=== PATIENT | female | born 1995 | race Two or more races ===

== ENCOUNTER 2016-09-27 05:42 | Emergency (ER) | payer MEDICAID, OTHER ==
[2016-09-27] MEDS ORDERED: cefTRIAXone 1,000 MG in Lidocaine 1% 4 ML IM ONE (06:04)
--- NOTE | 2016-09-27 06:04 | EDM.PDOC ---
ED HPI GENERAL MEDICAL PROBLEM - General Chief Complaint: ENT Problem Stated Complaint: EAR/JAW PAIN Time Seen by Provider: 09/27/16 06:02 Source of Information: Reports: Patient - History of Present Illness INITIAL COMMENTS - FREE TEXT/NARRATIVE: HISTORY AND PHYSICAL: History of present illness: [] Patient presents with left ear pain over the last 24 hours, she also has some supplements note some anterior chain no mastoid tenderness tympanic membrane on right is mildly injected left reddened obscured landmarks with effusion in no mastoid tenderness No fever nausea vomiting chills sweats Review of systems: As per history of present illness and below otherwise all systems reviewed and negative. Past medical history: As per history of present illness and as reviewed below otherwise noncontributory. Surgical history: As per history of present illness and as reviewed below otherwise noncontributory. Social history: No reported history of drug or alcohol abuse. Family history: As per history of present illness and as reviewed below otherwise noncontributory. Physical exam: HEENT: Atraumatic, normocephalic, pupils reactive, negative for conjunctival pallor or scleral icterus, mucous membranes moist, throat clear, neck supple, nontender, trachea midline. Lungs: Clear to auscultation, breath sounds equal bilaterally, chest nontender. Heart: S1S2, regular, negative for clicks, rubs, or JVD. Abdomen: Soft, nondistended, nontender. Negative for masses or hepatosplenomegaly. Negative for costovertebral tenderness. Pelvis: Stable nontender. Genitourinary: Deferred. Rectal: Deferred. Extremities: Atraumatic, negative for cords or calf pain. Neurovascular unremarkable. Neuro: Awake, alert, oriented. Cranial nerves II through XII unremarkable. Cerebellum unremarkable. Motor and sensory unremarkable throughout. Exam nonfocal. Diagnostics: [] Therapeutics: [] 1 g Rocephin IM Amoxicillin 875 by mouth twice a day #20 no refill Impression: [] Left otitis media Definitive disposition and diagnosis as appropriate pending reevaluation and review of above. Left Ear Pain Score (Numeric/FACES): 8 - Related Data Allergies Allergy/AdvReac Type Severity Reaction Status Date / Time No Known Allergies Allergy Verified 09/27/16 05:48 Home Meds: Home Meds . 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: None Musculoskeletal History: Reports: None Psychiatric History: Reports: None Dermatologic History: Reports: None - Past Surgical History HEENT Surgical History: Reports: None Cardiovascular Surgical History: Reports: None Respiratory Surgical History: Reports: None Musculoskeletal Surgical History: Reports: None Dermatological Surgical History: Reports: None Social & Family History - Tobacco Use Smoking Status *Q: Current Every Day Smoker Years of Tobacco use: 5 Packs/Tins Daily: 0.2 Tobacco Use Comment: on and off ED ROS GENERAL - Review of Systems Review Of Systems: ROS reveals no pertinent complaints other than HPI. ED EXAM, GENERAL - Physical Exam Exam: See Below Course - Vital Signs Last Recorded V/S: Last Vital Signs Temp 36.6 C 09/27/16 05:48 Pulse 82 09/27/16 05:48 Resp 16 09/27/16 05:48 BP 130/79 09/27/16 05:48 Pulse Ox 99 09/27/16 05:48 - Orders/Labs/Meds Orders: Active Orders 24 hr Category Date Time Status cefTRIAXone [Rocephin] 1,000 mg Med 09/27/16 06:04 Ordered Lidocaine 1% [Xylocaine-MPF 1%] 4 ml IM ONETIME Departure - Departure Time of Disposition: 06:06 Disposition: Home, Self-Care 01 Condition: good Clinical Impression: Otitis media Forms: ED Department Discharge Additional Instructions: Medication as prescribed Return if symptoms persist or worsen Followup with primary care as needed The following information is given to patients seen in the emergency department who are being discharged to home. This information is to outline your options for follow-up care. We provide all patients seen in our emergency department with a follow-up referral. The need for follow-up, as well as the timing and circumstances, are variable depending upon the specifics of your emergency department visit. If you don't have a primary care physician on staff, we will provide you with a referral. We always advise you to contact your personal physician following an emergency department visit to inform them of the circumstance of the visit and for follow-up with them and/or the need for any referrals to a consulting specialist. The emergency department will also refer you to a specialist when appropriate. This referral assures that you have the opportunity for follow-up care with a specialist. All of these measure are taken in an effort to provide you with optimal care, which includes your follow-up. Under all circumstances we always encourage you to contact your private physician who remains a resource for coordinating your care. When calling for follow-up care, please make the office aware that this follow-up is from your recent emergency room visit. If for any reason you are refused follow-up, please contact the [facility] emergency department at and asked to speak to the emergency department charge nurse. - My Orders Last 24 Hours: My Active Orders 09/27/16 06:04 cefTRIAXone [Rocephin] 1,000 mg Lidocaine 1% [Xylocaine-MPF 1%] 4 ml IM ONETIME - Assessment/Plan Last 24 Hours: My Active Orders 09/27/16 06:04 cefTRIAXone [Rocephin] 1,000 mg Lidocaine 1% [Xylocaine-MPF 1%] 4 ml IM ONETIME
[2016-09-27 06:37] VITALS: BP 127/77
== END 2016-09-27 06:37 | disposition home or self-care (01) ==
LOC: MW.ED 05:42
DX: H66.92 Otitis media, unspecified, left ear (principal); F17.210 Nicotine dependence, cigarettes, uncomplicated
CPT/HCPCS: 96372; 99282; J0696; 99283

== ENCOUNTER 2016-09-28 11:26 | Emergency (ER) | payer MEDICAID, OTHER ==
[2016-09-28 12:00] VITALS: BP 146/87
[2016-09-28] MEDS ORDERED: Ketorolac 60 MG/2 ML SDV IM ONE (12:15)
--- NOTE | 2016-09-28 12:20 | EDM.PDOC ---
ED HPI ENT - General Chief Complaint: ENT Problem Stated Complaint: EARACHE Time Seen by Provider: 09/28/16 11:55 Source of Information: Reports: Patient History Limitations: Reports: No limitations - History of Present Illness INITIAL COMMENTS - FREE TEXT/NARRATIVE: Presents reporting left ear pain. The patient states that she was seen in this ER yesterday by another provider for the same complaint. She was given a injection and a prescription for antibiotics which she picked up and started. Now. She states that now the pain is radiating to her left jaw and that she cannot lay on her left side because the exterior pressure hurts to much. No fever, dental problems. She states that she did have a watery drainage. - Related Data Allergies/ADRs: Allergies Allergy/AdvReac Type Severity Reaction Status Date / Time No Known Allergies Allergy Verified 09/28/16 12:00 Home Meds: Home Meds . 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 Musculoskeletal History: Reports: None Psychiatric History: Reports: None Dermatologic History: Reports: None - Past Surgical History HEENT Surgical History: Reports: None Cardiovascular Surgical History: Reports: None Respiratory Surgical History: Reports: None Musculoskeletal Surgical History: Reports: None Dermatological Surgical History: Reports: None Social & Family History - Family History Family Medical History: Noncontributory - Tobacco Use Smoking Status *Q: Current Every Day Smoker Years of Tobacco use: 4 Packs/Tins Daily: 0.2 - Caffeine Use Caffeine Use: Reports: None - Recreational Drug Use Recreational Drug Use: No ED ROS ENT - Review of Systems Review Of Systems: ROS reveals no pertinent complaints other than HPI. ED EXAM, ENT - Physical Exam Exam: See Below Exam Limited By: No limitations General Appearance: alert, mild distress (Due to pain) Ears: normal TMs (Right), other (The left canal is tight. The TM is partially visualized and is without injection. There appears to be some dried blood up against the TM. Much tragal tenderness. No mastoid tenderness) Nose: normal inspection Mouth/Throat: Normal inspection, Normal oropharynx Head: atraumatic, normocephalic Neck: normal inspection, supple, non-tender. No: lymphadenopathy (L), lymphadenopathy (R) Respiratory/Chest: no respiratory distress, lungs clear Cardiovascular: normal peripheral pulses, regular rate, rhythm, no murmur Neurological: alert, oriented Psychiatric: normal affect, normal mood Skin: Warm, Dry, Intact, Normal color, No rash Lymphatic: no adenopathy Course - Vital Signs Last Recorded V/S: Last Vital Signs Temp 36.4 C 09/28/16 11:58 Pulse 100 09/28/16 11:58 Resp 18 09/28/16 11:58 BP 146/87 H 09/28/16 11:58 Pulse Ox 97 09/28/16 11:58 - Orders/Labs/Meds Orders: Active Orders 24 hr Category Date Time Status Ketorolac [Toradol] Med 09/28/16 12:15 Once 60 mg IM ONETIME ONE Departure - Departure Time of Disposition: 12:21 Disposition: Home, Self-Care 01 Condition: good Clinical Impression: Otitis externa Qualifiers: Otitis externa type: unspecified type Laterality: left Chronicity: acute Qualified Code(s): H60.502 - Unspecified acute noninfective otitis externa, left ear Referrals: PCP,None [Primary Care Provider] - [facility] [Outside] [facility] [Outside] Forms: ED Department Discharge Additional Instructions: 1. Ear drops 4 drops in left ear 4 times a day x 7 days. 2. ibuprofen 600 mg (3 tabs) 3 times a day or Aleve 2 tabs in the morning and 2 tabs at night as needed for pain 3. please followup in primary care if symptoms worsen or do not improve as expected. 4. continue and finish antibiotics prescribed yesterday. - My Orders Last 24 Hours: My Active Orders 09/28/16 12:15 Ketorolac [Toradol] 60 mg IM ONETIME ONE - Assessment/Plan Last 24 Hours: My Active Orders 09/28/16 12:15 Ketorolac [Toradol] 60 mg IM ONETIME ONE
== END 2016-09-28 12:50 | disposition home or self-care (01) ==
LOC: MW.ED 11:26
DX: H60.502 Unspecified acute noninfective otitis externa, left ear (principal); F17.210 Nicotine dependence, cigarettes, uncomplicated
CPT/HCPCS: 96372; 99282; J1885; 99283

== ENCOUNTER 2016-09-28 19:38 | Inpatient (IN) | payer MEDICAID, OTHER ==
[2016-09-28] MEDS: Ondansetron 4 MG/2 ML SDV IVPUSH PRN (20:24)
[2016-09-28] MEDS: Sodium Chloride 0.9% 1,000 ML IV SCH (20:24)
[2016-09-28] MEDS: HYDROmorphone 2 MG/ML Syringe IVPUSH PRN (20:24)
--- NOTE | 2016-09-28 20:27 | EDM.PDOC ---
ED HPI ENT - General Chief Complaint: ENT Problem Stated Complaint: LEFT EAR PAIN Time Seen by Provider: 09/28/16 20:24 Source of Information: Reports: Provider - History of Present Illness INITIAL COMMENTS - FREE TEXT/NARRATIVE: She had 2 prior ER visits for left ear pain. She was given Rocephin and prescribed amoxicillin. She now complains of severe left ear pain. She is uncertain if she had a fever. She has slight runny nose. She has not vomited. Her pain is severe she has been unable to sleep because of pain. She notes swelling in front of her left ear. 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 QA History: Reports: None Musculoskeletal History: Reports: None Neurological History: Reports: None Psychiatric History: Reports: None Endocrine/Metabolic History: Reports: None Hematologic History: Reports: None Immunologic History: Reports: None Oncologic (Cancer) History: Reports: None Dermatologic History: Reports: None - Infectious Disease History Infectious Disease History: Reports: None - Past Surgical History Head Surgeries/Procedures: Reports: None HEENT Surgical History: Reports: None Cardiovascular Surgical History: Reports: None Respiratory Surgical History: Reports: None Musculoskeletal Surgical History: Reports: None Dermatological Surgical History: Reports: None Social & Family History - Family History Family Medical History: Noncontributory - Tobacco Use Smoking Status *Q: Current Every Day Smoker Years of Tobacco use: 4 Packs/Tins Daily: 0.2 - Caffeine Use Caffeine Use: Reports: None - Recreational Drug Use Recreational Drug Use: No ED ROS ENT - Review of Systems Review Of Systems: ROS reveals no pertinent complaints other than HPI. ED EXAM, ENT - Physical Exam Exam: See Below Text/Narrative:: She is alert and tearful. She complains of severe left ear pain. She has a slight swelling in the left preauricular area. Is marked pain with any touching of the tragus or the tissues around the ear. Marked pain with movement of the ear canal. The left ear canal appears very swollen such that the tympanic membrane cannot be visualized. Right TM is normal. Lungs clear to auscultation. Heart regular rate and rhythm without murmur. Abdomen nontender. Normal mentation but she is very tearful. Course - Vital Signs Last Recorded V/S: Last Vital Signs Temp 97.8 F 09/28/16 22:17 Pulse 110 H 09/28/16 22:17 Resp 16 09/28/16 22:17 BP 129/80 09/28/16 22:17 Pulse Ox 99 09/28/16 22:17 - Orders/Labs/Meds Orders: Active Orders 24 hr Category Date Time Status Orbit Sella PF IAC wo Cont [CT] Stat Exams 09/28/16 20:17 Taken CULTURE BLOOD [BC] Stat Lab 09/28/16 20:26 Results CULTURE BLOOD [BC] Stat Lab 09/28/16 20:33 Received HYDROmorphone [Dilaudid] Med 09/28/16 20:15 Active 2 mg IVPUSH Q2H PRN Ondansetron [Zofran] Med 09/28/16 20:15 Active 4 mg IVPUSH Q4H PRN Piperacillin/Tazobactam [Piperacil-Tazobact] 3.375 gm Med 09/28/16 20:15 Active Sodium Chloride 0.9% [Normal Saline] 50 ml IV Q6H Sodium Chloride 0.9% [Normal Saline] 1,000 ml Med 09/28/16 20:15 Active IV ASDIRECTED Blood Culture x2 Reflex Set [OM.PC] Stat Oth 09/28/16 20:37 Ordered Medication Orders Hydromorphone HCl (Dilaudid) 2 mg IVPUSH Q2H PRN PRN Reason: Pain Last Admin: 09/28/16 20:24 Dose: 2 mg Piperacillin Sod/Tazobactam (Sod 3.375 gm/ Sodium Chloride) 50 mls @ 100 mls/ hr IV Q6H PAULETTE Last Admin: 09/28/16 20:34 Dose: 100 mls/hr Sodium Chloride (Normal Saline) 1,000 mls @ 150 mls/hr IV ASDIRECTED PAULETTE Last Admin: 09/28/16 20:24 Dose: 150 mls/hr Ondansetron HCl (Zofran) 4 mg IVPUSH Q4H PRN PRN Reason: Nausea Last Admin: 09/28/16 20:24 Dose: 4 mg Labs: Laboratory Tests 09/28/16 09/28/16 09/28/16 Range/Units 20:26 20:33 20:33 WBC 13.11 H (4.0-11.0) K/uL RBC 4.32 (4.30-5.90) M/uL Hgb 13.6 (12.0-16.0) g/dL Hct 38.7 (36.0-46.0) % MCV 89.6 (80.0-98.0) fL MCH 31.5 (27.0-32.0) pg MCHC 35.1 (31.0-37.0) g/dL RDW Std Deviation 39.4 (28.0-62.0) fl RDW Coeff of Gino 12 (11.0-15.0) % Plt Count 159 (150-400) K/uL MPV 10.30 (7.40-12.00) fL Neut % (Auto) 77.4 (48.0-80.0) % Lymph % (Auto) 16.2 (16.0-40.0) % [place] % (Auto) 5.3 (0.0-15.0) % Eos % (Auto) 0.9 (0.0-7.0) % Baso % (Auto) 0.2 (0.0-1.5) % Neut # (Auto) 10.2 H (1.4-5.7) K/uL Lymph # (Auto) 2.1 (0.6-2.4) K/uL [place] # (Auto) 0.7 (0.0-0.8) K/uL Eos # (Auto) 0.1 (0.0-0.7) K/uL Baso # (Auto) 0.0 (0.0-0.1) K/uL Nucleated RBC % 0.0 /100WBC Nucleated RBCs # 0 K/uL Sodium 140 (136-146) mmol/L Potassium 3.9 (3.5-5.1) mmol/L Chloride 108 (98-110) mmol/L Carbon Dioxide 20 L (21-31) mmol/L BUN 12 (6.0-23.0) mg/dL Creatinine 0.8 (0.6-1.5) mg/dL Est Cr Clr Drug Dosing 92.79 mL/min Estimated GFR (MDRD) > 60.0 ml/min Glucose 126 H (60-110) mg/dL Calcium 9.7 (8.8-10.8) mg/dL Total Bilirubin 0.8 (0.1-1.5) mg/dL AST 10 (5-40) IU/L ALT 22 (8-54) IU/L Alkaline Phosphatase 98 (40-150) Total Protein 7.6 (6.0-8.0) g/dL Albumin 4.4 (3.5-5.0) g/dL Globulin 3.2 (2.0-3.5) g/dL Albumin/Globulin Ratio 1.4 (1.3-2.8) HCG, Qual NEGATIVE (NEG) Meds: Medications Generic Name Dose Route Start Last Admin Trade Name Freq PRN Reason Stop Dose Admin Hydromorphone HCl 2 mg 09/28/16 20:15 09/28/16 20:24 Dilaudid IVPUSH 2 mg Q2H PRN Administration Pain Piperacillin Sod/Tazobactam 50 mls @ 100 mls/hr 09/28/16 20:15 09/28/16 20:34 Sod 3.375 gm/ Sodium Chloride IV 100 mls/hr Q6H PAULETTE Administration Sodium Chloride 1,000 mls @ 150 mls/hr 09/28/16 20:15 09/28/16 20:24 Normal Saline IV 150 mls/hr ASDIRECTED PAULETTE Administration Ondansetron HCl 4 mg 09/28/16 20:15 09/28/16 20:24 Zofran IVPUSH 4 mg Q4H PRN Administration Nausea Discontinued Medications Generic Name Dose Route Start Last Admin Trade Name Freq PRN Reason Stop Dose Admin Hydromorphone HCl 2 mg 09/28/16 21:58 09/28/16 22:14 Dilaudid IVPUSH 09/28/16 21:59 2 mg ONETIME ONE Administration Ondansetron HCl 4 mg 09/28/16 22:56 09/28/16 23:02 Zofran IVPUSH 09/28/16 22:57 4 mg ONETIME ONE Administration - Re-Assessments/Exams Free Text/Narrative Re-Assessment/Exam: 09/28/16 23:48 She is feeling improved. I recommended in hospital observation as she has had severe pain. She agrees. 09/28/16 23:[address] report with is c/w malignant otitis externa and otitis media. Departure - Departure Time of Disposition: 11:50 Disposition: Admitted As Inpatient 66 Condition: fair Clinical Impression: Malignant otitis externa, left ear Forms: ED Department Discharge - My Orders Last 24 Hours: My Active Orders 09/28/16 20:15 HYDROmorphone [Dilaudid] 2 mg IVPUSH Q2H PRN Ondansetron [Zofran] 4 mg IVPUSH Q4H PRN Piperacillin/Tazobactam [Piperacil-Tazobact] 3.375 gm Sodium Chloride 0.9% [ Normal Saline] 50 ml IV Q6H Sodium Chloride 0.9% [Normal Saline] 1,000 ml IV ASDIRECTED 09/28/16 20:17 Orbit Sella PF IAC wo Cont [CT] Stat 09/28/16 20:26 CULTURE BLOOD [BC] Stat 09/28/16 20:33 CULTURE BLOOD [BC] Stat 09/28/16 20:37 Blood Culture x2 Reflex Set [OM.PC] Stat - Assessment/Plan Last 24 Hours: My Active Orders 09/28/16 20:15 HYDROmorphone [Dilaudid] 2 mg IVPUSH Q2H PRN Ondansetron [Zofran] 4 mg IVPUSH Q4H PRN Piperacillin/Tazobactam [Piperacil-Tazobact] 3.375 gm Sodium Chloride 0.9% [ Normal Saline] 50 ml IV Q6H Sodium Chloride 0.9% [Normal Saline] 1,000 ml IV ASDIRECTED 09/28/16 20:17 Orbit Sella PF IAC wo Cont [CT] Stat 09/28/16 20:26 CULTURE BLOOD [BC] Stat 09/28/16 20:33 CULTURE BLOOD [BC] Stat 09/28/16 20:37 Blood Culture x2 Reflex Set [OM.PC] Stat
[2016-09-28] MEDS: Piperacillin/Tazobactam 3.375 GM in Sodium Chloride 0.9% 50 ML IV SCH (20:34)
[2016-09-28 20:59] LABS: CHLORIDE,CL 108 mmol/L (98-110); SODIUM,NA 140 mmol/L (136-146)
[2016-09-28] MEDS ORDERED: HYDROmorphone 1 MG/ML Syringe IVPUSH ONE (21:58)
[2016-09-28] MEDS ORDERED: Ondansetron 4 MG/2 ML SDV IVPUSH ONE (22:56)
[2016-09-28] MEDS ORDERED: Bisacodyl 5 MG Tab PO PRN (23:52)
[2016-09-28] MEDS ORDERED: Albuterol/Ipratropium 3.0-0.5 MG/3 ML Neb Soln NEB PRN (23:52)
[2016-09-29] MEDS: HYDROmorphone 2 MG/ML Syringe IVPUSH PRN ×9 (00:31→23:09)
[2016-09-29] MEDS: Promethazine 25 MG/ML SDV IM PRN (01:07)
[2016-09-29] MEDS: Piperacillin/Tazobactam 3.375 GM in Sodium Chloride 0.9% 50 ML IV SCH ×2 (02:16→08:54)
[2016-09-29] MEDS: Sodium Chloride 0.9% 1,000 ML IV SCH ×4 (03:09→21:57)
[2016-09-29] MEDS: Acetaminophen 325 MG Tab PO PRN ×2 (04:40→19:58)
[2016-09-29 05:40] LABS: CHLORIDE,CL 107 mmol/L (98-110); SODIUM,NA 140 mmol/L (136-146)
[2016-09-29] MEDS: Enoxaparin 40 MG/0.4 ML Syringe SUBCUT SCH (08:02)
--- NOTE | 2016-09-29 08:07 | PCM.HP ---
H&P History of Present Illness - General Date of Service: 09/29/16 Admit Problem/Dx: Admission Diagnosis/Problem Admission Diagnosis/Problem Otitis externa Source of Information: Patient History Limitations: Reports: No limitations - History of Present Illness Initial Comments - Free Text/Narative: This 20 year old female with no significant pmh presented to the ED last evening with complaints of severe left ear pain. She had been tothe ED 2 times prior for the same pain. The pain has continued to worsen. She reports having chills at home. The ear pain started approximately 4 days ago and has progressively worsened to include the outside of her ear and extending down into her neck. She has some sinus congestion no sore throat. She reports it is hard to chew due to the pain and she is slightly nauseated as well. She was treated with Rocephin and sent home on Amoxicillin from the ED visits prior. Denies history of ear infections, no recent swimming or out of the country travel. No history of DM. In the ED leukocytosis was noted, 13,110. BC were obtained and pending. She was treated with Zosyn IV and IVFs. She was admitted for observation with otitis externa. Left Ear Pain Score (Numeric/FACES): 9 - Related Data Allergies/Adverse Reactions: Allergies Allergy/AdvReac Type Severity Reaction Status Date / Time No Known Allergies Allergy Verified 09/28/16 19:41 Home Medications: Home Meds Neomycin/Polymyxin B Sulf/HC [Ybsafvby-Npecytwrd-Sz Ear Soln] 4 drop OT QID #1 solution 09/28/16 [Rx] RX: Amoxicillin 500 mg PO BID 09/28/16 [History] Past Medical History - Past Health History Medical/Surgical History: Denies Medical/Surgical History HEENT History: Reports: Otitis media Cardiovascular History: Reports: None. Denies: Hypertension Respiratory History: Reports: None. 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 Denies: Diabetes, type I , Diabetes, type II, Hypothyroidism Hematologic History: Reports: None Immunologic History: Reports: None Oncologic (Cancer) History: Reports: None Dermatologic History: Reports: None - Infectious Disease History Infectious Disease History: Reports: None - Past Surgical History Head Surgeries/Procedures: Reports: None HEENT Surgical History: Reports: None Cardiovascular Surgical History: Reports: None Respiratory Surgical History: Reports: None Musculoskeletal Surgical History: Reports: None Dermatological Surgical History: Reports: None Social & Family History - Family History Family Medical History: Noncontributory - Tobacco Use Smoking Status *Q: Current Every Day Smoker Years of Tobacco use: 4 Packs/Tins Daily: 0.2 Used Tobacco, but Quit: No Second Hand Smoke Exposure: No - Caffeine Use Caffeine Use: Reports: Soda - Recreational Drug Use Recreational Drug Use: No H&P Review of Systems - Review of Systems: Review Of Systems: See Below General: Reports: fever, chills, malaise HEENT: Reports: ear pain (L ear pain), sinus congestion Pulmonary: Reports: No Symptoms. Denies: Shortness of Breath, Wheezing, Cough, Sputum Cardiovascular: Reports: no symptoms. Denies: chest pain, palpitations, edema Gastrointestinal: Reports: Nausea. Denies: Abdominal pain, Vomiting Genitourinary: Reports: no symptoms. Denies: dysuria, frequency, burning Musculoskeletal: Reports: no symptoms Psychiatric: Reports: no symptoms Neurological: Reports: No Symptoms Hematologic/Lymphatic: Reports: no symptoms Immunologic: Reports: no symptoms Exam - Exam Exam: See Below - Vital Signs Vital Signs: Last Vital Signs Temp 99.8 F 09/29/16 08:00 Pulse 133 H 09/29/16 08:00 Resp 22 H 09/29/16 08:00 BP 157/87 H 09/29/16 08:00 Pulse Ox 100 09/29/16 08:00 Weight: 102.8 kg - Exam General: alert, oriented, cooperative, other (extremely tearful and crying throughout exam, does calm down slightly during interview, but reports significant pain. Just given pain medication.) HEENT: Conjunctiva clear, Mucosa moist & pink. No: TMs clear (Unable to visualize L TM due to inflammation to EAC, extreme tenderness noted preauricular extending down to neck and all around ear. Erythema noted to R EAC , TM intact and clear) Neck: lymphadenopathy (L cervical and submandibular ) Lungs: Clear to auscultation, Normal respiratory effort Cardiovascular: regular rate, regular rhythm, normal S1, normal S2 Abdomen: normal bowel sounds, soft Extremities: normal inspection, edema Neuro Extensive - Mental Status: alert, oriented x3, normal mood/affect, normal cognition Psychiatric: alert, anxious (crying due to pain) - Patient Data Lab Results last 24 hrs: Laboratory Results - last 24 hr 09/29/16 09/29/16 Range/Units 05:19 05:19 WBC 11.86 H (4.0-11.0) K/uL RBC 4.10 L (4.30-5.90) M/uL Hgb 12.9 (12.0-16.0) g/dL Hct 37.7 (36.0-46.0) % MCV 92.0 (80.0-98.0) fL MCH 31.5 (27.0-32.0) pg MCHC 34.2 (31.0-37.0) g/dL RDW Std Deviation 41.8 (28.0-62.0) fl RDW Coeff of Gino 12 (11.0-15.0) % Plt Count 159 (150-400) K/uL MPV 9.70 (7.40-12.00) fL Neut % (Auto) 73.2 (48.0-80.0) % Lymph % (Auto) 19.9 (16.0-40.0) % [place] % (Auto) 6.3 (0.0-15.0) % Eos % (Auto) 0.3 (0.0-7.0) % Baso % (Auto) 0.3 (0.0-1.5) % Neut # (Auto) 8.7 H (1.4-5.7) K/uL Lymph # (Auto) 2.4 (0.6-2.4) K/uL [place] # (Auto) 0.8 (0.0-0.8) K/uL Eos # (Auto) 0.0 (0.0-0.7) K/uL Baso # (Auto) 0.0 (0.0-0.1) K/uL Nucleated RBC % 0.0 /100WBC Nucleated RBCs # 0 K/uL Sodium 140 (136-146) mmol/L Potassium 4.2 (3.5-5.1) mmol/L Chloride 107 (98-110) mmol/L Carbon Dioxide 24 (21-31) mmol/L BUN 10 (6.0-23.0) mg/dL Creatinine 0.8 (0.6-1.5) mg/dL Est Cr Clr Drug Dosing 92.79 mL/min Estimated GFR (MDRD) > 60.0 ml/min Glucose 101 (60-110) mg/dL Calcium 8.8 (8.8-10.8) mg/dL Magnesium 1.9 (1.5-2.3) mEq/L Result Diagrams: 09/29/16 05:19 09/29/16 05:19 *Q Meaningful Use (ADM) - VTE *Q VTE Criteria *Q: - Stroke *Q Stroke Criteria *Q: - AMI *Q AMI Criteria *Q: - Problem List (1) Otitis externa SNOMED Code(s): 0949771 ICD Code: H60.90 - UNSPECIFIED OTITIS EXTERNA, UNSPECIFIED EAR Status: Acute Current Visit: No Qualifiers: Otitis externa type: unspecified type Laterality: left Chronicity: acute Qualified Code(s): H60.502 - Unspecified acute noninfective otitis externa, left ear (2) Otitis media SNOMED Code(s): 84580150 ICD Code: H66.90 - OTITIS MEDIA, UNSPECIFIED, UNSPECIFIED EAR Status: Acute Current Visit: No Qualifiers: Laterality: left Chronicity: acute Recurrence: not specified as recurrent Problem List Initiated/Reviewed/Updated: Yes Orders Last 24hrs: Active Orders 24 hr Category Date Time Status Promethazine [Phenergan] Med 09/29/16 00:49 Active 25 mg IM Q6H PRN Medication Orders Acetaminophen (Tylenol) 650 mg PO Q4H PRN PRN Reason: Pain (Mild 1-3)/fever Last Admin: 09/29/16 04:40 Dose: 650 mg Albuterol/Ipratropium (Duoneb 3.0-0.5 Mg/3 Ml) 3 ml NEB Q4HRRT PRN PRN Reason: Shortness Of Breath/wheezing Bisacodyl (Dulcolax) 5 mg PO DAILY PRN PRN Reason: Constipation Enoxaparin Sodium (Lovenox) 40 mg SUBCUT DAILY PAULETTE Last Admin: 09/29/16 08:02 Dose: 40 mg Hydromorphone HCl (Dilaudid) 2 mg IVPUSH Q2H PRN PRN Reason: Pain Last Admin: 09/29/16 07:49 Dose: 2 mg Admin: 09/29/16 05:26 Dose: 2 mg Admin: 09/29/16 03:21 Dose: 2 mg Admin: 09/29/16 00:31 Dose: 2 mg Admin: 09/28/16 20:24 Dose: 2 mg Piperacillin Sod/Tazobactam (Sod 3.375 gm/ Sodium Chloride) 50 mls @ 100 mls/ hr IV Q6H PAULETTE Last Infusion: 09/29/16 02:50 Dose: 100 mls/hr Admin: 09/29/16 02:16 Dose: 100 mls/hr Infusion: 09/28/16 21:04 Dose: 100 mls/hr Admin: 09/28/16 20:34 Dose: 100 mls/hr Sodium Chloride (Normal Saline) 1,000 mls @ 150 mls/hr IV ASDIRECTED PAULETTE Last Admin: 09/29/16 03:09 Dose: 150 mls/hr Infusion: 09/29/16 03:05 Dose: 150 mls/hr Admin: 09/28/16 20:24 Dose: 150 mls/hr Ondansetron HCl (Zofran) 4 mg IVPUSH Q4H PRN PRN Reason: Nausea Last Admin: 09/28/16 20:24 Dose: 4 mg Promethazine HCl (Phenergan) 25 mg IM Q6H PRN PRN Reason: Nausea/Vomiting Last Admin: 09/29/16 01:07 Dose: 25 mg Assessment/Plan Comment:: This 20 year old female admitted with otitis externa 1. Otitis externa: Continue with Zosyn. Leukocytosis improved overnight slightly , now 11,000. Has been afebrile. Will consult Dr. Fletcher due to severity and hospitalization . BC pending. Analgesia PRN and anti-emetics PRN. VTE: Lovenox Dispo: Pending improvement.
[2016-09-29] MEDS: oxyCODONE 5 MG Tab PO PRN (11:16)
[2016-09-29] MEDS: Ondansetron 4 MG/2 ML SDV IVPUSH PRN ×2 (12:38→21:13)
[2016-09-29] MEDS: Piperacillin/Tazobactam 4.5 GM in Sodium Chloride 0.9% 100 ML IV SCH ×2 (14:10→20:02)
--- NOTE | 2016-09-29 15:45 | CT ---
EXAM DATE: 09/28/16 PATIENT'S AGE: 20 Patient: SEBASTIAN CMAPO Facility: [place], [place] Site . Site : 1995 Study: CT Head IAC WO CONT [id number]/[id number] 10:03:40 PM Ordering Physician: Gael Johansen Final Report: Indication : Severe left ear pain, suspect malignant otitis externa. Technique : Performed without IV contrast. Comparison : None available Findings : Left temporal bone: Moderate soft tissue thickening involving the cartilaginous and bony segments of the external auditory canal, with streaking of the subcutaneous fat adjacent to the cartilaginous EAC. No bone destruction is identified. The appearance is compatible with otitis externa. There is soft tissue within the middle ear cleft, partially involving the ossicles but with no associated ossicular displacement or bone destruction. This extends into the round window and oval window/sinus tympani areas, and could represent a reactive effusion. The anterior structures and IAC are unremarkable. Right temporal bone The middle ear cleft is well aerated, including the oval window and round window/sinus tympani areas. The ossicular chain and tympanic membranes have a normal CT appearance. The mastoid is well developed and clear, including the central tracts and peripheral air cells. The inner ear structures and IAC are unremarkable. The external canal is negative. No abnormalities identified in the adjacent temporomandibular joints. Extensive polypoid soft tissue in the visualized paranasal sinuses, with opacification of the left sphenoid sinus. The visualized portions of the brain, orbits and upper soft tissue neck are grossly negative. Impression : 1. Prominent soft tissue thickening involving the bony and cartilaginous segments of the left EAC. There is associated streaking of the adjacent subcutaneous fat about the base of the left pinna. Findings are compatible with otitis externa. No canal bone destruction identified at this time. 2. Partial soft tissue opacification of the left middle ear cleft, which could represent a reactive effusion. 3. The right temporal bone has a normal CT appearance. 4. Paranasal sinus inflammatory changes Dictated by Uri Bernardo MD @ Sep 29 2016 1:11PM (Electronic Signature) Report Signed by Proxy and Original Signed Document filed in the Medical Record. [facility]
[2016-09-29] MEDS: Ciprofloxacin/Dexamethasone 0.3-0.1% Otic Susp 7.5 ML Bottle EARLF SCH ×3 (16:30→23:15)
--- NOTE | 2016-09-29 17:02 | PCM.CONS ---
H&P History of Present Illness - General Admit Problem/Dx: Admission Diagnosis/Problem Admission Diagnosis/Problem Otitis externa Source of Information: Patient History Limitations: Reports: No limitations - History of Present Illness Initial Comments - Free Text/Narative: L ear ache - 4 d L facial swelling - 2 d Started with L headache and ear ache; over the next days - pain localized to the ear and progressive. This was f/b L ear blockage and otorrhea. Over the last day - L periaural swelling and progression of symptoms. Also feels her ear is blocked and hearing is muffled. Use Q tips; otherwise - no trauma to ear NO fever; no photophobia Also reports nasal congestion Improves with: Reports: Medication Left Ear Pain Score (Numeric/FACES): 9 - Related Data Allergies/Adverse Reactions: Allergies Allergy/AdvReac Type Severity Reaction Status Date / Time No Known Allergies Allergy Verified 09/28/16 19:41 Home Medications: Home Meds Amoxicillin 500 mg PO BID 09/28/16 [History] Neomycin/Polymyxin B Sulf/HC [Dobhefes-Ksixmqsri-Ei Ear Soln] 4 drop OT QID #1 solution 09/28/16 [Rx] Past Medical History - Past Health History Medical/Surgical History: Denies Medical/Surgical History HEENT History: Reports: Otitis media Cardiovascular History: Reports: None. Denies: Hypertension Respiratory History: Reports: None. 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 Denies: Diabetes, type I , Diabetes, type II, Hypothyroidism Hematologic History: Reports: None Immunologic History: Reports: None Oncologic (Cancer) History: Reports: None Dermatologic History: Reports: None - Infectious Disease History Infectious Disease History: Reports: None - Past Surgical History Head Surgeries/Procedures: Reports: None HEENT Surgical History: Reports: None Cardiovascular Surgical History: Reports: None Respiratory Surgical History: Reports: None Musculoskeletal Surgical History: Reports: None Dermatological Surgical History: Reports: None Social & Family History - Family History Family Medical History: Noncontributory - Tobacco Use Smoking Status *Q: Current Every Day Smoker Years of Tobacco use: 4 Packs/Tins Daily: 0.2 Used Tobacco, but Quit: No Second Hand Smoke Exposure: No - Caffeine Use Caffeine Use: Reports: Soda - Recreational Drug Use Recreational Drug Use: No H&P Review of Systems - Review of Systems: Review Of Systems: See Below General: Reports: fatigue HEENT: Reports: ear pain Pulmonary: Reports: No Symptoms Cardiovascular: Reports: no symptoms Gastrointestinal: Reports: No symptoms Musculoskeletal: Reports: neck pain Skin: Reports: other Exam - Exam Exam: See Below - Vital Signs Vital Signs: Last Vital Signs Temp 36.8 C 09/29/16 15:35 Pulse 109 H 09/29/16 15:35 Resp 20 09/29/16 15:35 BP 132/79 09/29/16 15:35 Pulse Ox 90 L 09/29/16 15:35 Weight: 102.8 kg - Exam General: alert, oriented, cooperative Skin: warm, dry, intact Neuro Extensive - Mental Status: alert, oriented x3, memory intact Physical Exam Comments:: L facial swelling + O/P - L pre auricular tender ++ and induration + Tragal and root of EAC tenderness ++;minimal crusted otorrhea at L EAC Otoscopy - L EC narrow ++ Ant rhinoscopy - ? Yared nasal polyps / ?? mucoid rhinorrhea Oropharynx / oral cavity - Yared Gr 3 tonsils ++; PP wall - clear Neck - L Level II tender LN +; ROM - normal VII N - normal - Patient Data Lab Results last 24 hrs: Laboratory Results - last 24 hr 09/29/16 09/29/16 09/29/16 Range/Units 05:09 05:09 05:09 WBC (4.0-11.0) K/uL RBC (4.30-5.90) M/uL Hgb (12.0-16.0) g/dL Hct (36.0-46.0) % MCV (80.0-98.0) fL MCH (27.0-32.0) pg MCHC (31.0-37.0) g/dL RDW Std Deviation (28.0-62.0) fl RDW Coeff of Gino (11.0-15.0) % Plt Count (150-400) K/uL MPV (7.40-12.00) fL Neut % (Auto) (48.0-80.0) % Lymph % (Auto) (16.0-40.0) % [place] % (Auto) (0.0-15.0) % Eos % (Auto) (0.0-7.0) % Baso % (Auto) (0.0-1.5) % Neut # (Auto) (1.4-5.7) K/uL Lymph # (Auto) (0.6-2.4) K/uL [place] # (Auto) (0.0-0.8) K/uL Eos # (Auto) (0.0-0.7) K/uL Baso # (Auto) (0.0-0.1) K/uL Nucleated RBC % /100WBC Nucleated RBCs # K/uL ESR 45 H (0-19) mm/hr Sodium (136-146) mmol/L Potassium (3.5-5.1) mmol/L Chloride (98-110) mmol/L Carbon Dioxide (21-31) mmol/L BUN (6.0-23.0) mg/dL Creatinine (0.6-1.5) mg/dL Est Cr Clr Drug Dosing mL/min Estimated GFR (MDRD) ml/min Glucose (60-110) mg/dL Hemoglobin A1c 5.1 (0.0-6.0) % Calcium (8.8-10.8) mg/dL Magnesium (1.5-2.3) mEq/L C-Reactive Protein 9.94 H (0.0-0.5) mg/dL 09/29/16 09/29/16 Range/Units 05:19 05:19 WBC 11.86 H (4.0-11.0) K/uL RBC 4.10 L (4.30-5.90) M/uL Hgb 12.9 (12.0-16.0) g/dL Hct 37.7 (36.0-46.0) % MCV 92.0 (80.0-98.0) fL MCH 31.5 (27.0-32.0) pg MCHC 34.2 (31.0-37.0) g/dL RDW Std Deviation 41.8 (28.0-62.0) fl RDW Coeff of Gino 12 (11.0-15.0) % Plt Count 159 (150-400) K/uL MPV 9.70 (7.40-12.00) fL Neut % (Auto) 73.2 (48.0-80.0) % Lymph % (Auto) 19.9 (16.0-40.0) % [place] % (Auto) 6.3 (0.0-15.0) % Eos % (Auto) 0.3 (0.0-7.0) % Baso % (Auto) 0.3 (0.0-1.5) % Neut # (Auto) 8.7 H (1.4-5.7) K/uL Lymph # (Auto) 2.4 (0.6-2.4) K/uL [place] # (Auto) 0.8 (0.0-0.8) K/uL Eos # (Auto) 0.0 (0.0-0.7) K/uL Baso # (Auto) 0.0 (0.0-0.1) K/uL Nucleated RBC % 0.0 /100WBC Nucleated RBCs # 0 K/uL ESR (0-19) mm/hr Sodium 140 (136-146) mmol/L Potassium 4.2 (3.5-5.1) mmol/L Chloride 107 (98-110) mmol/L Carbon Dioxide 24 (21-31) mmol/L BUN 10 (6.0-23.0) mg/dL Creatinine 0.8 (0.6-1.5) mg/dL Est Cr Clr Drug Dosing 92.79 mL/min Estimated GFR (MDRD) > 60.0 ml/min Glucose 101 (60-110) mg/dL Hemoglobin A1c (0.0-6.0) % Calcium 8.8 (8.8-10.8) mg/dL Magnesium 1.9 (1.5-2.3) mEq/L C-Reactive Protein (0.0-0.5) mg/dL Result Diagrams: 09/29/16 05:19 09/29/16 05:19 Consult PN Assessment/Plan (1) Cellulitis, face SNOMED Code(s): 655109221 Code(s): L03.211 - CELLULITIS OF FACE Current Visit: Yes (2) Otitis externa SNOMED Code(s): 1652140 Code(s): H60.90 - UNSPECIFIED OTITIS EXTERNA, UNSPECIFIED EAR Current Visit : No Qualifiers: Otitis externa type: unspecified type Laterality: left Chronicity: acute Qualified Code(s): H60.502 - Unspecified acute noninfective otitis externa, left ear Problem List Initiated/Reviewed/Updated: Yes My Orders last 24 hours: My Active Orders 09/29/16 15:50 CULTURE EAR [RM] Routine Plan: - For L ear culture - performed - EUM of L ear w microsuction and L Otowick - L ear Ciprodex drop 5 dr BID - COnt IV antibiotics till clinical improvement - Can transition to PO Ciprofloxacin when ready for discharge - Discussed with the team
--- NOTE | 2016-09-29 17:12 | PCM.PRNOTE ---
- Free Text/Narrative Note: Exam of Left ear under Microscope - suction and placement of L otowick - The Left EAC was very swollen +++; unable to visualize the TM; microsuction was performed. Otowick and Ciprodex placed Time for the procedure - 15 minutes Complications - none
[2016-09-30] MEDS: oxyCODONE 5 MG Tab PO PRN ×3 (00:34→16:04)
[2016-09-30] MEDS: HYDROmorphone 2 MG/ML Syringe IVPUSH PRN ×7 (01:11→20:34)
[2016-09-30] MEDS: Piperacillin/Tazobactam 4.5 GM in Sodium Chloride 0.9% 100 ML IV SCH ×4 (01:19→20:22)
[2016-09-30 06:13] LABS: CHLORIDE,CL 107 mmol/L (98-110); SODIUM,NA 139 mmol/L (136-146)
[2016-09-30] MEDS: Ciprofloxacin/Dexamethasone 0.3-0.1% Otic Susp 7.5 ML Bottle EARLF SCH ×2 (08:36→20:23)
[2016-09-30] MEDS: Enoxaparin 40 MG/0.4 ML Syringe SUBCUT SCH (08:36)
[2016-09-30] MEDS: Ondansetron 4 MG/2 ML SDV IVPUSH PRN ×3 (10:07→23:20)
--- NOTE | 2016-09-30 12:07 | PCM.PN ---
- General Info Date of Service: 09/30/16 Admission Dx/Problem (Free Text): Admission Diagnosis/Problem Admission Diagnosis/Problem Otitis externa Functional Status: Denies: pain controlled - Review of Systems General: Denies: Fever HEENT: Reports: ear pain Pulmonary: Reports: no symptoms Cardiovascular: Reports: No Symptoms Gastrointestinal: Reports: No symptoms Genitourinary: Reports: no symptoms Musculoskeletal: Reports: no symptoms Skin: Reports: no symptoms Neurological: Reports: No Symptoms Psychiatric: Reports: no symptoms - Patient Data Vitals - most recent: Last Vital Signs Temp 36.4 C 09/30/16 11:41 Pulse 81 09/30/16 11:41 Resp 20 09/30/16 11:41 BP 119/72 09/30/16 11:41 Pulse Ox 90 L 09/30/16 11:41 Weight - most recent: 102.8 kg I&O - last 24 hours: Intake & Output 09/29/16 09/30/16 09/30/16 22:59 06:59 14:59 Intake Total 3259 500 100 Output Total 320 Balance 2939 500 100 Lab Results last 24 hrs: Laboratory Results - last 24 hr 09/29/16 09/29/16 09/29/16 Range/Units 05:09 05:09 05:09 WBC (4.0-11.0) K/uL RBC (4.30-5.90) M/uL Hgb (12.0-16.0) g/dL Hct (36.0-46.0) % MCV (80.0-98.0) fL MCH (27.0-32.0) pg MCHC (31.0-37.0) g/dL RDW Std Deviation (28.0-62.0) fl RDW Coeff of Gino (11.0-15.0) % Plt Count (150-400) K/uL MPV (7.40-12.00) fL Neut % (Auto) (48.0-80.0) % Lymph % (Auto) (16.0-40.0) % [place] % (Auto) (0.0-15.0) % Eos % (Auto) (0.0-7.0) % Baso % (Auto) (0.0-1.5) % Neut # (Auto) (1.4-5.7) K/uL Lymph # (Auto) (0.6-2.4) K/uL [place] # (Auto) (0.0-0.8) K/uL Eos # (Auto) (0.0-0.7) K/uL Baso # (Auto) (0.0-0.1) K/uL Nucleated RBC % /100WBC Nucleated RBCs # K/uL ESR 45 H (0-19) mm/hr Sodium (136-146) mmol/L Potassium (3.5-5.1) mmol/L Chloride (98-110) mmol/L Carbon Dioxide (21-31) mmol/L BUN (6.0-23.0) mg/dL Creatinine (0.6-1.5) mg/dL Est Cr Clr Drug Dosing mL/min Estimated GFR (MDRD) ml/min Glucose (60-110) mg/dL Hemoglobin A1c 5.1 (0.0-6.0) % Calcium (8.8-10.8) mg/dL C-Reactive Protein 9.94 H (0.0-0.5) mg/dL 09/30/16 09/30/16 Range/Units 05:24 05:24 WBC 9.59 (4.0-11.0) K/uL RBC 3.53 L (4.30-5.90) M/uL Hgb 11.0 L (12.0-16.0) g/dL Hct 32.5 L (36.0-46.0) % MCV 92.1 (80.0-98.0) fL MCH 31.2 (27.0-32.0) pg MCHC 33.8 (31.0-37.0) g/dL RDW Std Deviation 41.6 (28.0-62.0) fl RDW Coeff of Gino 12 (11.0-15.0) % Plt Count 145 L (150-400) K/uL MPV 9.70 (7.40-12.00) fL Neut % (Auto) 60.9 (48.0-80.0) % Lymph % (Auto) 30.4 (16.0-40.0) % [place] % (Auto) 7.6 (0.0-15.0) % Eos % (Auto) 0.9 (0.0-7.0) % Baso % (Auto) 0.2 (0.0-1.5) % Neut # (Auto) 5.8 H (1.4-5.7) K/uL Lymph # (Auto) 2.9 H (0.6-2.4) K/uL [place] # (Auto) 0.7 (0.0-0.8) K/uL Eos # (Auto) 0.1 (0.0-0.7) K/uL Baso # (Auto) 0.0 (0.0-0.1) K/uL Nucleated RBC % 0.0 /100WBC Nucleated RBCs # 0 K/uL ESR (0-19) mm/hr Sodium 139 (136-146) mmol/L Potassium 4.0 (3.5-5.1) mmol/L Chloride 107 (98-110) mmol/L Carbon Dioxide 23 (21-31) mmol/L BUN 8 (6.0-23.0) mg/dL Creatinine 0.7 (0.6-1.5) mg/dL Est Cr Clr Drug Dosing 106.05 mL/min Estimated GFR (MDRD) > 60.0 ml/min Glucose 96 (60-110) mg/dL Hemoglobin A1c (0.0-6.0) % Calcium 8.4 L (8.8-10.8) mg/dL C-Reactive Protein (0.0-0.5) mg/dL Med Orders - Current: Current Medications Acetaminophen (Tylenol) 650 mg PO Q4H PRN PRN Reason: Pain (Mild 1-3)/fever Last Admin: 09/29/16 19:58 Dose: 650 mg Albuterol/Ipratropium (Duoneb 3.0-0.5 Mg/3 Ml) 3 ml NEB Q4HRRT PRN PRN Reason: Shortness Of Breath/wheezing Bisacodyl (Dulcolax) 5 mg PO DAILY PRN PRN Reason: Constipation Ciprofloxacin/Dexamethasone (Ciprodex Otic Susp) 0 ml EARLF BID [facility] Last Admin: 09/30/16 08:36 Dose: 4 drop Enoxaparin Sodium (Lovenox) 40 mg SUBCUT DAILY [facility] Last Admin: 09/30/16 08:36 Dose: 40 mg Hydromorphone HCl (Dilaudid) 2 mg IVPUSH Q2H PRN PRN Reason: Pain Last Admin: 09/30/16 10:49 Dose: 2 mg Piperacillin Sod/Tazobactam (Sod 4.5 gm/ Sodium Chloride) 100 mls @ 100 mls/hr IV Q6H [facility] Last Admin: 09/30/16 07:22 Dose: 100 mls/hr Sodium Chloride (Normal Saline) 1,000 mls @ 75 mls/hr IV ASDIRECTED [facility] Last Admin: 09/29/16 21:57 Dose: 75 mls/hr Ondansetron HCl (Zofran) 4 mg IVPUSH Q4H PRN PRN Reason: Nausea Last Admin: 09/30/16 10:07 Dose: 4 mg Oxycodone HCl (Oxycodone) 10 mg PO Q4H PRN PRN Reason: Pain Promethazine HCl (Phenergan) 25 mg IM Q6H PRN PRN Reason: Nausea/Vomiting Last Admin: 09/29/16 01:07 Dose: 25 mg Discontinued Medications Hydromorphone HCl (Dilaudid) 2 mg IVPUSH ONETIME ONE Stop: 09/28/16 21:59 Last Admin: 09/28/16 22:14 Dose: 2 mg Piperacillin Sod/Tazobactam (Sod 3.375 gm/ Sodium Chloride) 50 mls @ 100 mls/ hr IV Q6H [facility] Last Admin: 09/29/16 08:54 Dose: 100 mls/hr Sodium Chloride (Normal Saline) 1,000 mls @ 150 mls/hr IV ASDIRECTED [facility] Last Admin: 09/29/16 10:57 Dose: 150 mls/hr Ondansetron HCl (Zofran) 4 mg IVPUSH ONETIME ONE Stop: 09/28/16 22:57 Last Admin: 09/28/16 23:02 Dose: 4 mg Oxycodone HCl (Oxycodone) 5 mg PO Q4H PRN PRN Reason: Pain Last Admin: 09/30/16 09:41 Dose: 5 mg - Exam Quality Assessment: No: supplemental oxygen General: alert, oriented, cooperative, moderate distress HEENT: Pupils equal, Pupils reactive Neck: supple, trachea midline Lungs: Clear to auscultation, Normal respiratory effort Cardiovascular: Regular Rate, Regular Rhythm Abdomen: bowel sounds present, soft, no tenderness, no distension Back Exam: normal inspection Extremities: no edema Skin: warm, dry, intact Psy/Mental Status: alert, normal affect - Problem List & Annotations (1) Malignant otitis externa, left ear SNOMED Code(s): 63183244 Code(s): H60.22 - MALIGNANT OTITIS EXTERNA, LEFT EAR Status: Acute Priority: High Current Visit: Yes Qualifiers: Chronicity: acute Qualified Code(s): H60.22 - Malignant otitis externa, left ear - Problem List Review Problem List Initiated/Reviewed/Updated: Yes - My Orders Last 24 Hours: My Active Orders 09/30/16 10:16 oxyCODONE 10 mg PO Q4H PRN - Plan Plan:: This 20 year old female admitted with otitis externa 1. Otitis externa: Continue with Zosyn. Leukocytosis improved overnight slightly , now 11,000. Has been afebrile. Will consult Dr. Fletcher due to severity and hospitalization . BC pending. Analgesia PRN and anti-emetics PRN. VTE: Lovenox Dispo: Pending improvement. Sep 30, 2016: The patient is 20-year-old lady was admitted secondary to severe pain in her left ear along with cellulitis resembling malignant otitis externa. The patient's pain medication has been adjusted and she is on oxycodone 10 mg by mouth every 4 hours as well as 2 mg of Dilaudid every 4 hours. The patient's here today externally looks well, no erythema, some edema no drainage was noted. The patient is being followed by ENT physician. For now I do want to continue with the patient's Zosyn IV until cultures have been returned. The patient's treatment plan with regards to antibiotic will be adjusted depending on the culture and sensitivity of the organism. The patient's white blood cell count has normalized. The patient is to continue on with her diet as tolerated. continue Lovenox for DVT prophylaxis The patient's hemoglobin A1c was 5.1%. This is in the nondiabetic range. I'll see the patient in followup tomorrow morning and likely she'll be appropriate for discharge home depending on degree of pain control, improvement infection and input from ENT physician.
[2016-09-30] MEDS: Sodium Chloride 0.9% 1,000 ML IV SCH (14:16)
[2016-09-30] MEDS: Promethazine 25 MG/ML SDV IM PRN (17:20)
[2016-09-30] MEDS: Acetaminophen 325 MG Tab PO PRN (23:20)
[2016-10-01] MEDS: Piperacillin/Tazobactam 4.5 GM in Sodium Chloride 0.9% 100 ML IV SCH ×3 (01:01→14:29)
[2016-10-01] MEDS: oxyCODONE 5 MG Tab PO PRN ×2 (01:01→07:50)
[2016-10-01 05:26] LABS: CHLORIDE,CL 107 mmol/L (98-110); SODIUM,NA 140 mmol/L (136-146)
[2016-10-01] MEDS: Sodium Chloride 0.9% 1,000 ML IV SCH (07:50)
[2016-10-01] MEDS: Ciprofloxacin/Dexamethasone 0.3-0.1% Otic Susp 7.5 ML Bottle EARLF SCH (08:00)
[2016-10-01] MEDS: Enoxaparin 40 MG/0.4 ML Syringe SUBCUT SCH (08:00)
--- NOTE | 2016-10-01 10:12 | PCM.PN ---
- General Info Date of Service: 10/01/16 Admission Dx/Problem (Free Text): Admission Diagnosis/Problem Admission Diagnosis/Problem Otitis externa Functional Status: Reports: pain controlled, tolerating diet - Review of Systems General: Reports: No Symptoms HEENT: Reports: ear pain Pulmonary: Reports: no symptoms Cardiovascular: Reports: No Symptoms Gastrointestinal: Reports: No symptoms Genitourinary: Reports: no symptoms Musculoskeletal: Reports: no symptoms Skin: Reports: no symptoms Neurological: Reports: No Symptoms Psychiatric: Reports: no symptoms - Patient Data Vitals - most recent: Last Vital Signs Temp 36.9 C 10/01/16 08:00 Pulse 98 10/01/16 08:00 Resp 18 10/01/16 08:00 BP 132/92 H 10/01/16 08:00 Pulse Ox 93 L 10/01/16 08:00 Weight - most recent: 102.8 kg I&O - last 24 hours: Intake & Output 09/30/16 10/01/16 10/01/16 22:59 06:59 14:59 Intake Total 1100 1300 999 Balance 1100 1300 999 Lab Results last 24 hrs: Laboratory Results - last 24 hr 10/01/16 10/01/16 Range/Units 04:15 04:15 WBC 8.19 (4.0-11.0) K/uL RBC 3.53 L (4.30-5.90) M/uL Hgb 11.0 L (12.0-16.0) g/dL Hct 31.9 L (36.0-46.0) % MCV 90.4 (80.0-98.0) fL MCH 31.2 (27.0-32.0) pg MCHC 34.5 (31.0-37.0) g/dL RDW Std Deviation 38.7 (28.0-62.0) fl RDW Coeff of Gino 12 (11.0-15.0) % Plt Count 168 (150-400) K/uL MPV 10.20 (7.40-12.00) fL Neut % (Auto) 54.7 (48.0-80.0) % Lymph % (Auto) 37.4 (16.0-40.0) % [place] % (Auto) 5.4 (0.0-15.0) % Eos % (Auto) 2.3 (0.0-7.0) % Baso % (Auto) 0.2 (0.0-1.5) % Neut # (Auto) 4.5 (1.4-5.7) K/uL Lymph # (Auto) 3.1 H (0.6-2.4) K/uL [place] # (Auto) 0.4 (0.0-0.8) K/uL Eos # (Auto) 0.2 (0.0-0.7) K/uL Baso # (Auto) 0.0 (0.0-0.1) K/uL Nucleated RBC % 0.0 /100WBC Nucleated RBCs # 0 K/uL Sodium 140 (136-146) mmol/L Potassium 3.9 (3.5-5.1) mmol/L Chloride 107 (98-110) mmol/L Carbon Dioxide 24 (21-31) mmol/L BUN 7 (6.0-23.0) mg/dL Creatinine 0.7 (0.6-1.5) mg/dL Est Cr Clr Drug Dosing 106.05 mL/min Estimated GFR (MDRD) > 60.0 ml/min Glucose 80 (60-110) mg/dL Calcium 8.7 L (8.8-10.8) mg/dL Med Orders - Current: Current Medications Acetaminophen (Tylenol) 650 mg PO Q4H PRN PRN Reason: Pain (Mild 1-3)/fever Last Admin: 09/30/16 23:20 Dose: 650 mg Albuterol/Ipratropium (Duoneb 3.0-0.5 Mg/3 Ml) 3 ml NEB Q4HRRT PRN PRN Reason: Shortness Of Breath/wheezing Bisacodyl (Dulcolax) 5 mg PO DAILY PRN PRN Reason: Constipation Ciprofloxacin/Dexamethasone (Ciprodex Otic Susp) 0 ml EARLF BID [facility] Last Admin: 10/01/16 08:00 Dose: 4 drop Enoxaparin Sodium (Lovenox) 40 mg SUBCUT DAILY [facility] Last Admin: 10/01/16 08:00 Dose: 40 mg Hydromorphone HCl (Dilaudid) 2 mg IVPUSH Q2H PRN PRN Reason: Pain Last Admin: 09/30/16 20:34 Dose: 2 mg Piperacillin Sod/Tazobactam (Sod 4.5 gm/ Sodium Chloride) 100 mls @ 100 mls/hr IV Q6H [facility] Last Admin: 10/01/16 07:51 Dose: 100 mls/hr Sodium Chloride (Normal Saline) 1,000 mls @ 75 mls/hr IV ASDIRECTED [facility] Last Admin: 10/01/16 07:50 Dose: 75 mls/hr Ondansetron HCl (Zofran) 4 mg IVPUSH Q4H PRN PRN Reason: Nausea Last Admin: 09/30/16 23:20 Dose: 4 mg Oxycodone HCl (Oxycodone) 10 mg PO Q4H PRN PRN Reason: Pain Last Admin: 10/01/16 07:50 Dose: 10 mg Promethazine HCl (Phenergan) 25 mg IM Q6H PRN PRN Reason: Nausea/Vomiting Last Admin: 09/30/16 17:20 Dose: 25 mg Discontinued Medications Hydromorphone HCl (Dilaudid) 2 mg IVPUSH ONETIME ONE Stop: 09/28/16 21:59 Last Admin: 09/28/16 22:14 Dose: 2 mg Piperacillin Sod/Tazobactam (Sod 3.375 gm/ Sodium Chloride) 50 mls @ 100 mls/ hr IV Q6H [facility] Last Admin: 09/29/16 08:54 Dose: 100 mls/hr Sodium Chloride (Normal Saline) 1,000 mls @ 150 mls/hr IV ASDIRECTED [facility] Last Admin: 09/29/16 10:57 Dose: 150 mls/hr Ondansetron HCl (Zofran) 4 mg IVPUSH ONETIME ONE Stop: 09/28/16 22:57 Last Admin: 09/28/16 23:02 Dose: 4 mg Oxycodone HCl (Oxycodone) 5 mg PO Q4H PRN PRN Reason: Pain Last Admin: 09/30/16 09:41 Dose: 5 mg - Exam Quality Assessment: No: supplemental oxygen General: alert, oriented, cooperative HEENT: Pupils equal, Pupils reactive, EOMI Neck: supple, trachea midline Lungs: Clear to auscultation, Normal respiratory effort Cardiovascular: Regular Rate, Regular Rhythm Abdomen: bowel sounds present, soft Back Exam: normal inspection Extremities: no edema, normal pulses Skin: warm, dry, intact Neurological: no new focal deficit Psy/Mental Status: alert, normal affect - Problem List & Annotations (1) Malignant otitis externa, left ear SNOMED Code(s): 23052969 Code(s): H60.22 - MALIGNANT OTITIS EXTERNA, LEFT EAR Status: Acute Priority: High Current Visit: Yes Qualifiers: Chronicity: acute Qualified Code(s): H60.22 - Malignant otitis externa, left ear - Problem List Review Problem List Initiated/Reviewed/Updated: Yes - My Orders Last 24 Hours: My Active Orders 10/01/16 15:15 BASIC METABOLIC PANEL,BMP [CHEM] AM - Assessment Assessment:: Oct 01, 2016: The patient was admitted for malignant otitis externa. She is doing much better today. Her pain is better well-controlled. The patient should have the external ear canal wick removed today and if the patient is able to tolerate her diet and she is improved somewhat also the patient home today with oral antibiotics and otic drops. The patient should followup with her primary care physician and ENT as scheduled. I will also discharge her on pain control. She'll be discharged with diet as tolerated and also activity as tolerated. - Plan Plan:: This 20 year old female admitted with otitis externa 1. Otitis externa: Continue with Zosyn. Leukocytosis improved overnight slightly , now 11,000. Has been afebrile. Will consult Dr. Fletcher due to severity and hospitalization . BC pending. Analgesia PRN and anti-emetics PRN. VTE: Lovenox Dispo: Pending improvement. Sep 30, 2016: The patient is 20-year-old lady was admitted secondary to severe pain in her left ear along with cellulitis resembling malignant otitis externa. The patient's pain medication has been adjusted and she is on oxycodone 10 mg by mouth every 4 hours as well as 2 mg of Dilaudid every 4 hours. The patient's here today externally looks well, no erythema, some edema no drainage was noted. The patient is being followed by ENT physician. For now I do want to continue with the patient's Zosyn IV until cultures have been returned. The patient's treatment plan with regards to antibiotic will be adjusted depending on the culture and sensitivity of the organism. The patient's white blood cell count has normalized. The patient is to continue on with her diet as tolerated. continue Lovenox for DVT prophylaxis The patient's hemoglobin A1c was 5.1%. This is in the nondiabetic range. I'll see the patient in followup tomorrow morning and likely she'll be appropriate for discharge home depending on degree of pain control, improvement infection and input from ENT physician.
[2016-10-01 12:09] VITALS: BP 130/80
--- NOTE | 2016-10-01 15:38 | PCM.DCSUM1 ---
Discharge Summary - Hospital Course HPI Initial Comments: The patient was admitted for malignant otitis externa. She is doing much better today. Her pain is better well-controlled. The patient should have the external ear canal wick removed today and if the patient is able to tolerate her diet and she is improved somewhat also the patient home today with oral antibiotics and otic drops. The patient should followup with her primary care physician and ENT as scheduled. I will also discharge her on pain control. She'll be discharged with diet as tolerated and also activity as tolerated. - Discharge Data Discharge Date: 10/01/16 Discharge Disposition: Home, Self-Care 01 Condition: Good - Discharge Diagnosis/Problem(s) (1) Malignant otitis externa, left ear SNOMED Code(s): 55031674 ICD Code: H60.22 - MALIGNANT OTITIS EXTERNA, LEFT EAR Status: Acute Priority: High Current Visit: Yes Qualifiers: Chronicity: acute Qualified Code(s): H60.22 - Malignant otitis externa, left ear - Patient Summary/Data Hospital Course: Oct 01, 2016: The patient is a 20-year-old lady was admitted secondary to severe otitis media with cellulitis of the side of her face. The patient had no significant past medical history and she presented to the emergency department on Sep 29, 2016. The patient continued to have fever and chills at home. Patient said that she had a pain which had developed approximately 4 days and gotten progressively worse and was extending down her neck. As a result of this and the patient's initial leukocytosis of 13.1 thousand she was admitted and started on IV Zosyn and IV fluids. The patient's pain was difficult to control secondary to the degree of swelling that she had. At one point she had been placed on 2 mg of IV Dilaudid as well as milligrams of oxycodone every 4 hours as necessary for breakthrough pain. The patient had blood cultures which were obtained on Sep 28, 2016 which showed no growth. ENT physician, Dr. Fletcher, was consulted and evaluated the patient. She also had placed a wick at eardrops and the patient's left ear. A discharge the patient had continued to improve. Her pain is very well-controlled. She had been on IV Zosyn since admission. The patient's vital signs were stable her blood pressure was 130/80 at time of discharge and her temperature was 37.1 Celsius. She also has significantly less swelling of her left ear. The patient was prescribed Percocet 10/325 mg patient was given #20 with no refill. She is to take one every 4-6 hours as necessary for pain. Patient also had been given a short course of Augmentin 875 mg for 5 days. She been given Ciprodex otic drops as well. The patient has a followup appointment with Dr. Fletcher on October 04, 2016. Patient should also followup with her primary care physician. The patient will be discharged with a diet as tolerated and physical activity as tolerated. - Patient Instructions Diet: Heart Healthy Diet Driving: Do Not Drive Notify Provider of: Fever, Increased Pain, Swelling and Redness - Discharge Plan Prescriptions/Med Rec: Amoxicillin/Clavulanate K [Augmentin 875 MG/125 MG] 1 tab PO BID #14 tablet Ciprofloxacin/Dexamethasone [Ciprodex Otic Susp] 2 drop EARLF QID #1 bottle oxyCODONE HCl/Acetaminophen [Percocet 10-325 mg Tablet] 1 each PO Q12H PRN #20 tablet PRN Reason: Pain Home Medications: Home Meds Amoxicillin 500 mg PO BID 09/28/16 [History] Neomycin/Polymyxin B Sulf/HC [Yhfdxihs-Pwmxbamfn-Yk Ear Soln] 4 drop OT QID #1 solution 09/28/16 [Rx] Amoxicillin/Clavulanate K [Augmentin 875 MG/125 MG] 1 tab PO BID #14 tablet [Rx] Ciprofloxacin/Dexamethasone [Ciprodex Otic Susp] 2 drop EARLF QID #1 bottle [Rx] oxyCODONE HCl/Acetaminophen [Percocet 10-325 mg Tablet] 1 each PO Q12H PRN #20 tablet 10/01/16 [Rx] Patient Handouts: Otitis Externa, [id number]-Fwlc, Amoxicillin; Clavulanic Acid tablets, Acetaminophen; Oxycodone tablets, Ciprofloxacin otic solution Referrals: Adrian Christie DO [Physician] - 10/11/16 11:00 am Maggie Fletcher MD [Physician] - 10/04/16 2:00 pm - Discharge Summary/Plan Comment DC Time >30 min.: Yes - Patient Data Vitals - Most Recent: Last Vital Signs Temp 37.1 C 10/01/16 12:00 Pulse 88 10/01/16 12:00 Resp 18 10/01/16 12:00 BP 130/80 10/01/16 12:00 Pulse Ox 94 L 10/01/16 12:00 Weight - Most Recent: 102.8 kg I&O - Last 24 hours: Intake & Output 10/01/16 10/01/16 10/01/16 06:59 14:59 22:59 Intake Total 1300 1099 Balance 1300 1099 Lab Results - Last 24 hrs: Laboratory Results - last 24 hr 10/01/16 10/01/16 Range/Units 04:15 04:15 WBC 8.19 (4.0-11.0) K/uL RBC 3.53 L (4.30-5.90) M/uL Hgb 11.0 L (12.0-16.0) g/dL Hct 31.9 L (36.0-46.0) % MCV 90.4 (80.0-98.0) fL MCH 31.2 (27.0-32.0) pg MCHC 34.5 (31.0-37.0) g/dL RDW Std Deviation 38.7 (28.0-62.0) fl RDW Coeff of Gino 12 (11.0-15.0) % Plt Count 168 (150-400) K/uL MPV 10.20 (7.40-12.00) fL Neut % (Auto) 54.7 (48.0-80.0) % Lymph % (Auto) 37.4 (16.0-40.0) % [place] % (Auto) 5.4 (0.0-15.0) % Eos % (Auto) 2.3 (0.0-7.0) % Baso % (Auto) 0.2 (0.0-1.5) % Neut # (Auto) 4.5 (1.4-5.7) K/uL Lymph # (Auto) 3.1 H (0.6-2.4) K/uL [place] # (Auto) 0.4 (0.0-0.8) K/uL Eos # (Auto) 0.2 (0.0-0.7) K/uL Baso # (Auto) 0.0 (0.0-0.1) K/uL Nucleated RBC % 0.0 /100WBC Nucleated RBCs # 0 K/uL Sodium 140 (136-146) mmol/L Potassium 3.9 (3.5-5.1) mmol/L Chloride 107 (98-110) mmol/L Carbon Dioxide 24 (21-31) mmol/L BUN 7 (6.0-23.0) mg/dL Creatinine 0.7 (0.6-1.5) mg/dL Est Cr Clr Drug Dosing 106.05 mL/min Estimated GFR (MDRD) > 60.0 ml/min Glucose 80 (60-110) mg/dL Calcium 8.7 L (8.8-10.8) mg/dL Med Orders - Current: Current Medications Acetaminophen (Tylenol) 650 mg PO Q4H PRN PRN Reason: Pain (Mild 1-3)/fever Last Admin: 09/30/16 23:20 Dose: 650 mg Albuterol/Ipratropium (Duoneb 3.0-0.5 Mg/3 Ml) 3 ml NEB Q4HRRT PRN PRN Reason: Shortness Of Breath/wheezing Bisacodyl (Dulcolax) 5 mg PO DAILY PRN PRN Reason: Constipation Ciprofloxacin/Dexamethasone (Ciprodex Otic Susp) 0 ml EARLF BID [facility] Last Admin: 10/01/16 08:00 Dose: 4 drop Enoxaparin Sodium (Lovenox) 40 mg SUBCUT DAILY [facility] Last Admin: 10/01/16 08:00 Dose: 40 mg Hydromorphone HCl (Dilaudid) 2 mg IVPUSH Q2H PRN PRN Reason: Pain Last Admin: 09/30/16 20:34 Dose: 2 mg Piperacillin Sod/Tazobactam (Sod 4.5 gm/ Sodium Chloride) 100 mls @ 100 mls/hr IV Q6H [facility] Last Admin: 10/01/16 14:29 Dose: 100 mls/hr Sodium Chloride (Normal Saline) 1,000 mls @ 75 mls/hr IV ASDIRECTED [facility] Last Admin: 10/01/16 07:50 Dose: 75 mls/hr Ondansetron HCl (Zofran) 4 mg IVPUSH Q4H PRN PRN Reason: Nausea Last Admin: 09/30/16 23:20 Dose: 4 mg Oxycodone HCl (Oxycodone) 10 mg PO Q4H PRN PRN Reason: Pain Last Admin: 10/01/16 07:50 Dose: 10 mg Promethazine HCl (Phenergan) 25 mg IM Q6H PRN PRN Reason: Nausea/Vomiting Last Admin: 09/30/16 17:20 Dose: 25 mg Discontinued Medications Hydromorphone HCl (Dilaudid) 2 mg IVPUSH ONETIME ONE Stop: 09/28/16 21:59 Last Admin: 09/28/16 22:14 Dose: 2 mg Piperacillin Sod/Tazobactam (Sod 3.375 gm/ Sodium Chloride) 50 mls @ 100 mls/ hr IV Q6H [facility] Last Admin: 09/29/16 08:54 Dose: 100 mls/hr Sodium Chloride (Normal Saline) 1,000 mls @ 150 mls/hr IV ASDIRECTED [facility] Last Admin: 09/29/16 10:57 Dose: 150 mls/hr Ondansetron HCl (Zofran) 4 mg IVPUSH ONETIME ONE Stop: 09/28/16 22:57 Last Admin: 09/28/16 23:02 Dose: 4 mg Oxycodone HCl (Oxycodone) 5 mg PO Q4H PRN PRN Reason: Pain Last Admin: 09/30/16 09:41 Dose: 5 mg *Q Meaningful Use (DIS) - VTE *Q VTE Criteria *Q: - Stroke *Q Stroke Criteria *Q: - AMI *Q AMI Criteria *Q:
== END 2016-10-01 16:00 | disposition home or self-care (01) | DRG 156 ==
LOC: MW.ED 19:38 → MW.MS 23:53 → OBSVTOIN 09-30 14:31
PROVIDERS: ADMIT Family Medicine; ATTEND Family Medicine
DX: H60.22 Malignant otitis externa, left ear (principal); E66.9 Obesity, unspecified; Z68.30 Body mass index [BMI] 30.0-30.9, adult; F17.200 Nicotine dependence, unspecified, uncomplicated
CPT/HCPCS: 36415; 70480; 70480-26; 80048; 80053; 83036; 83735; 84703; 85025; 85652; 86140; 87040; 87070; 87077; 87186; 96361; 96365; 96366; 96372; 96375; 96376; 99284; 99284-25; A9270-GY; G0378; J1170; J1650; J2405; J2543; J2550; J7030; J7040; J7050

== ENCOUNTER 2017-06-24 00:02 | Emergency (ER) | payer OTHER ==
[2017-06-24] MEDS ORDERED: Sodium Chloride 0.9% 1,000 ML IV ONE (00:18)
[2017-06-24] MEDS ORDERED: Ketorolac 30 MG/ML SDV IVPUSH ONE (00:18)
[2017-06-24] MEDS ORDERED: Ondansetron 4 MG/2 ML SDV IVPUSH ONE (00:18)
--- NOTE | 2017-06-24 00:19 | EDM.PDOC ---
ED HPI GENERAL MEDICAL PROBLEM - General Chief Complaint: Abdominal Pain Stated Complaint: PT HAS STOMACH PAINS Time Seen by Provider: 06/24/17 00:18 Source of Information: Reports: Patient - History of Present Illness INITIAL COMMENTS - FREE TEXT/NARRATIVE: HISTORY AND PHYSICAL: History of present illness: [Patient with chronic abdominal pain history over the last 2 years with some sputum association presents with nausea vomiting and loose stools over the last couple of days are multiple sick contacts at home with similar symptoms. She is not in acute distress she has vomited once here in the ER no fever or chills sweats no chest pain shortness breath headache dizziness or palpitation no bowel or urine symptoms Patient states she has had a history of H. pylori with subsequent treatment, her chronic abdominal pain with food association is suspicious for gallbladder symptoms/biliary colic ] Review of systems: As per history of present illness and below otherwise all systems reviewed and negative. Past medical history: As per history of present illness and as reviewed below otherwise noncontributory. Surgical history: As per history of present illness and as reviewed below otherwise noncontributory. Social history: No reported history of drug or alcohol abuse. Family history: As per history of present illness and as reviewed below otherwise noncontributory. Physical exam: HEENT: Atraumatic, normocephalic, pupils reactive, negative for conjunctival pallor or scleral icterus, mucous membranes moist, throat clear, neck supple, nontender, trachea midline. Lungs: Clear to auscultation, breath sounds equal bilaterally, chest nontender. Heart: S1S2, regular, negative for clicks, rubs, or JVD. Abdomen: Soft, nondistended, nontender in lower quadrants there is some tenderness in the right upper quadrant no guarding or rebound tenderness. Negative for masses or hepatosplenomegaly. Negative for costovertebral tenderness. Pelvis: Stable nontender. Genitourinary: Deferred. Rectal: Deferred. Extremities: Atraumatic, negative for cords or calf pain. Neurovascular unremarkable. Neuro: Awake, alert, oriented. Cranial nerves II through XII unremarkable. Cerebellum unremarkable. Motor and sensory unremarkable throughout. Exam nonfocal. Diagnostics: [CBC CMP amylase lipase UA hCG ]Ultrasound right upper quadrant Therapeutics: [1 L normal saline bolus Zofran 8 mg IV Toradol 30 mg IV ] Macrobid 100 mg by mouth twice a day #14 no refill Zofran Impression: Gastroenteritis [Chronic Abdominal pain/discomfort with food association] UTI Definitive disposition and diagnosis as appropriate pending reevaluation and review of above. abdomen Pain Score (Numeric/FACES): 8 - Related Data Allergies Allergy/AdvReac Type Severity Reaction Status Date / Time No Known Allergies Allergy Verified 06/24/17 00:11 Home Meds: Home Meds . [No Known Home Meds] 06/24/17 [History] Past Medical History - Past Health History Medical/Surgical History: Denies Medical/Surgical History HEENT History: Reports: Otitis Media Cardiovascular History: Reports: None. Denies: Hypertension Respiratory History: Reports: None. Denies: Asthma Gastrointestinal History: Reports: None Genitourinary History: Reports: None [employer] History: Reports: None Musculoskeletal History: Reports: None Neurological History: Reports: None Psychiatric History: Reports: None Endocrine/Metabolic History: Reports: Obesity/BMI 30+. Denies: Diabetes, Type I , Diabetes, Type II, Hypothyroidism Hematologic History: Reports: None Immunologic History: Reports: None Oncologic (Cancer) History: Reports: None Dermatologic History: Reports: None - Infectious Disease History Infectious Disease History: Reports: None - Past Surgical History Head Surgeries/Procedures: Reports: None HEENT Surgical History: Reports: None Cardiovascular Surgical History: Reports: None Respiratory Surgical History: Reports: None Musculoskeletal Surgical History: Reports: None Dermatological Surgical History: Reports: None Social & Family History - Family History Family Medical History: Noncontributory - Tobacco Use Smoking Status *Q: Current Every Day Smoker Years of Tobacco use: 4 Packs/Tins Daily: 0.2 Used Tobacco, but Quit: No Second Hand Smoke Exposure: No - Caffeine Use Caffeine Use: Reports: Soda - Recreational Drug Use Recreational Drug Use: No ED ROS GENERAL - Review of Systems Review Of Systems: ROS reveals no pertinent complaints other than HPI. ED EXAM, GENERAL - Physical Exam Exam: See Below Course - Vital Signs Last Recorded V/S: Last Vital Signs Temp 98 F 06/24/17 00:02 Pulse 104 H 06/24/17 00:02 Resp 24 H 06/24/17 00:02 BP 114/78 06/24/17 00:02 Pulse Ox 100 06/24/17 00:02 - Orders/Labs/Meds Orders: Active Orders 24 hr Category Date Time Status Abdomen Ltd [US] Stat Exams 06/24/17 01:33 Taken Labs: Laboratory Tests 06/24/17 06/24/17 06/24/17 Range/Units 00:20 00:20 00:25 WBC 10.68 (4.0-11.0) K/uL RBC 4.78 (4.30-5.90) M/uL Hgb 15.5 (12.0-16.0) g/dL Hct 42.8 (36.0-46.0) % MCV 89.5 (80.0-98.0) fL MCH 32.4 H (27.0-32.0) pg MCHC 36.2 (31.0-37.0) g/dL RDW Std Deviation 38.8 (28.0-62.0) fl RDW Coeff of Gino 12 (11.0-15.0) % Plt Count 208 (150-400) K/uL MPV 9.90 (7.40-12.00) fL Neut % (Auto) 64.2 (48.0-80.0) % Lymph % (Auto) 29.1 (16.0-40.0) % [place] % (Auto) 4.8 (0.0-15.0) % Eos % (Auto) 1.7 (0.0-7.0) % Baso % (Auto) 0.2 (0.0-1.5) % Neut # (Auto) 6.9 H (1.4-5.7) K/uL Lymph # (Auto) 3.1 H (0.6-2.4) K/uL [place] # (Auto) 0.5 (0.0-0.8) K/uL Eos # (Auto) 0.2 (0.0-0.7) K/uL Baso # (Auto) 0.0 (0.0-0.1) K/uL Nucleated RBC % 0.0 /100WBC Nucleated RBCs # 0 K/uL Sodium 141 (136-146) mmol/L Potassium 4.1 (3.5-5.1) mmol/L Chloride 106 (98-110) mmol/L Carbon Dioxide 23 (21-31) mmol/L BUN 15 (6.0-23.0) mg/dL Creatinine 0.7 (0.6-1.5) mg/dL Est Cr Clr Drug Dosing TNP Estimated GFR (MDRD) > 60.0 ml/min Glucose 84 (60-110) mg/dL Calcium 9.6 (8.8-10.8) mg/dL Total Bilirubin 0.8 (0.1-1.5) mg/dL AST 19 (5-40) IU/L ALT 29 (8-54) IU/L Alkaline Phosphatase 99 (40-150) Total Protein 7.9 (6.0-8.0) g/dL Albumin 4.7 (3.5-5.0) g/dL Globulin 3.2 (2.0-3.5) g/dL Albumin/Globulin Ratio 1.5 (1.3-2.8) Amylase 61 (10-90) U/L Lipase 61 (7-80) U/L Urine Color Urine Appearance Urine pH (5.0-8.0) Ur Specific [place] (1.001-1.035) Urine Protein (NEGATIVE) mg/dL Urine Glucose (UA) (NEGATIVE) mg/dL Urine Ketones (NEGATIVE) mg/dL Urine Occult Blood (NEGATIVE) Urine Nitrite (NEGATIVE) Urine Bilirubin (NEGATIVE) Urine Urobilinogen (<2.0) EU/dL Ur Leukocyte Esterase (NEGATIVE) Urine RBC (0-2/HPF) Urine WBC (0-5/HPF) Ur Epithelial Cells (NONE-FEW) Urine Bacteria (NEGATIVE) Urine Mucus (NONE-MOD) Urine HCG, Qual NEGATIVE (NEGATIVE) 06/24/17 Range/Units 00:25 WBC (4.0-11.0) K/uL RBC (4.30-5.90) M/uL Hgb (12.0-16.0) g/dL Hct (36.0-46.0) % MCV (80.0-98.0) fL MCH (27.0-32.0) pg MCHC (31.0-37.0) g/dL RDW Std Deviation (28.0-62.0) fl RDW Coeff of Gino (11.0-15.0) % Plt Count (150-400) K/uL MPV (7.40-12.00) fL Neut % (Auto) (48.0-80.0) % Lymph % (Auto) (16.0-40.0) % [place] % (Auto) (0.0-15.0) % Eos % (Auto) (0.0-7.0) % Baso % (Auto) (0.0-1.5) % Neut # (Auto) (1.4-5.7) K/uL Lymph # (Auto) (0.6-2.4) K/uL [place] # (Auto) (0.0-0.8) K/uL Eos # (Auto) (0.0-0.7) K/uL Baso # (Auto) (0.0-0.1) K/uL Nucleated RBC % /100WBC Nucleated RBCs # K/uL Sodium (136-146) mmol/L Potassium (3.5-5.1) mmol/L Chloride (98-110) mmol/L Carbon Dioxide (21-31) mmol/L BUN (6.0-23.0) mg/dL Creatinine (0.6-1.5) mg/dL Est Cr Clr Drug Dosing Estimated GFR (MDRD) ml/min Glucose (60-110) mg/dL Calcium (8.8-10.8) mg/dL Total Bilirubin (0.1-1.5) mg/dL AST (5-40) IU/L ALT (8-54) IU/L Alkaline Phosphatase (40-150) Total Protein (6.0-8.0) g/dL Albumin (3.5-5.0) g/dL Globulin (2.0-3.5) g/dL Albumin/Globulin Ratio (1.3-2.8) Amylase (10-90) U/L Lipase (7-80) U/L Urine Color YELLOW Urine Appearance SLT CLOUDY Urine pH 6.0 (5.0-8.0) Ur Specific [place] >= 1.030 (1.001-1.035) Urine Protein TRACE (NEGATIVE) mg/dL Urine Glucose (UA) NEGATIVE (NEGATIVE) mg/dL Urine Ketones NEGATIVE (NEGATIVE) mg/dL Urine Occult Blood NEGATIVE (NEGATIVE) Urine Nitrite NEGATIVE (NEGATIVE) Urine Bilirubin NEGATIVE (NEGATIVE) Urine Urobilinogen 0.2 (<2.0) EU/dL Ur Leukocyte Esterase SMALL (NEGATIVE) Urine RBC 1-2 (0-2/HPF) Urine WBC 18-25 (0-5/HPF) Ur Epithelial Cells FEW (NONE-FEW) Urine Bacteria 2+ H (NEGATIVE) Urine Mucus FEW (NONE-MOD) Urine HCG, Qual (NEGATIVE) Meds: Medications Discontinued Medications Generic Name Dose Route Start Last Admin Trade Name Angélica PRN Reason Stop Dose Admin Sodium Chloride 1,000 mls @ 999 mls/hr 06/24/17 00:18 06/24/17 00:28 Normal Saline IV 06/24/17 01:18 999 mls/hr STAT ONE Administration Ketorolac Tromethamine 30 mg 06/24/17 00:18 06/24/17 00:31 Toradol IVPUSH 06/24/17 00:19 30 mg ONETIME ONE Administration Ondansetron HCl 8 mg 06/24/17 00:18 06/24/17 00:30 Zofran IVPUSH 06/24/17 00:19 8 mg ONETIME ONE Administration Promethazine HCl 25 mg 06/24/17 01:35 06/24/17 01:42 Phenergan IM 06/24/17 01:36 25 mg ONETIME ONE Administration Departure - Departure Time of Disposition: 02:33 Disposition: Home, Self-Care 01 Condition: Good Clinical Impression: Gastroenteritis - Discharge Information Referrals: PCP,None [Primary Care Provider] - Forms: ED Department Discharge Additional Instructions: Medication as prescribed Return if symptoms persist or worsen Follow-up with primary care in 2 weeks sooner as needed For chronic abdominal pain and discomfort in May consider HIDA scan with her primary care provider The following information is given to patients seen in the emergency department who are being discharged to home. This information is to outline your options for follow-up care. We provide all patients seen in our emergency department with a follow-up referral. The need for follow-up, as well as the timing and circumstances, are variable depending upon the specifics of your emergency department visit. If you don't have a primary care physician on staff, we will provide you with a referral. We always advise you to contact your personal physician following an emergency department visit to inform them of the circumstance of the visit and for follow-up with them and/or the need for any referrals to a consulting specialist. The emergency department will also refer you to a specialist when appropriate. This referral assures that you have the opportunity for follow-up care with a specialist. All of these measure are taken in an effort to provide you with optimal care, which includes your follow-up. Under all circumstances we always encourage you to contact your private physician who remains a resource for coordinating your care. When calling for follow-up care, please make the office aware that this follow-up is from your recent emergency room visit. If for any reason you are refused follow-up, please contact the [facility] emergency department at and asked to speak to the emergency department charge nurse. - My Orders Last 24 Hours: My Active Orders 06/24/17 01:33 Abdomen Ltd [US] Stat - Assessment/Plan Last 24 Hours: My Active Orders 06/24/17 01:33 Abdomen Ltd [US] Stat
[2017-06-24 00:57] LABS: CHLORIDE,CL 106 mmol/L (98-110); SODIUM,NA 141 mmol/L (136-146)
[2017-06-24] MEDS ORDERED: Promethazine 25 MG/ML SDV IM ONE (01:35)
[2017-06-24 02:53] VITALS: BP 110/67
--- NOTE | 2017-06-24 16:54 | US ---
EXAM DATE: 06/24/17 PATIENT'S AGE: 21 Patient: SEBASTIAN CAMPO Facility: [place], [place] Site . Site : 1995 Study: US Abdomen [id number]/[id number] 2:08:46 AM Ordering Physician: Sussy Ku Final Report: INDICATION: PAIN TECHNIQUE: Ultrasound abdomen limited. Sonographic images of the right upper quadrant were obtained using greenfield-scale and color Doppler images. COMPARISON: None FINDINGS: Liver: Diffuse increased echotexture of the imaged liver Gallbladder: No stones or sludge. Contracted. No pericholecystic fluid. Common bile duct: 3 mm. Pancreas: The imaged portion is unremarkable Right kidney: 9.7 cm. Normal echotexture and cortex. No masses, stones, or hydronephrosis. IMPRESSION: No acute abnormality. Diffuse fatty infiltration of the liver. Dictated by Mich Serrano MD @ 06/24/2017 2:12:02 AM Dictated by: Mich Serrano MD @ 06/24/2017 02:12:19 (Electronic Signature) Report Signed by Proxy. [facility]
== END 2017-06-24 02:57 | disposition home or self-care (01) ==
LOC: MW.ED 00:02
DX: K52.9 Noninfective gastroenteritis and colitis, unspecified (principal); N39.0 Urinary tract infection, site not specified; I10 Essential (primary) hypertension; F17.210 Nicotine dependence, cigarettes, uncomplicated
CPT/HCPCS: 76705; 80053; 81001; 81025; 82150; 83690; 85025; 87804; 96361; 96372; 96374; 96375; 99284; J1885; J2405; J2550; J7040